=== PATIENT | male | born 1970 | race Caucasian/White ===

== ENCOUNTER 2020-08-05 12:08 | Outpatient (RCR) | payer MEDICAID, SELFPAY ==
--- NOTE | 2020-08-05 13:35 | PCPTNOTE ---
Patient:Alverto Lakhani Date of :1970 Thank you for referring this Alverto to [facility]. The patient has been evaluated for wheelchair seating and recommendations have been made, with assistance of the DME provider, [facility] [place], present. The findings have been scanned into the patient's EMR. Please review, sign, date and return this recognition of care provided. I agree with and certify that the following plan for DME equipment is medically necessary. Efren Buckner PA-C date
== END 2020-08-08 07:58 | disposition home or self-care (01) ==
LOC: ANHPT 12:08
PROVIDERS: PCP Physician Assistant; Visit Provider Physician Assistant
DX: I63.9 Cerebral infarction, unspecified (principal)
CPT/HCPCS: 97163

== ENCOUNTER 2020-12-26 15:12 | Outpatient (RCR) | payer MEDICARE, MEDICAID, SELFPAY ==
--- NOTE | 2020-12-26 16:52 | REHOPWC ---
SEATING EVALUATION NOTIFICATION Re: Alverto Lakhani : 1970 This is to notify provider that Alverto Lakhani participated in a power mobility device evaluation today. Recommendations were made specific to patient's needs. Seating Assessment documentation has been completed for detailed information on required equipment. The mobility device provider for this case is [facility]. Please note that no further care plan will be developed on this account. Thank you for referring this patient to [facility]. Please review, sign, date and return this discharge summary FORTUNATO. I have been updated about the patient's current status and I agree with discharge from the above service at this time. Referring Physician Date
== END 2020-12-27 16:59 | disposition home or self-care (01) ==
LOC: ANHPT 15:12
PROVIDERS: PCP Physician Assistant; Visit Provider Physician Assistant
DX: I63.9 Cerebral infarction, unspecified (principal)
CPT/HCPCS: 97163

== ENCOUNTER 2024-12-25 11:45 | Outpatient (CLI) | payer MEDICARE, MEDICAID, SELFPAY ==
--- NOTE | ~2024-12-25 | XR_ITS ---
EXAM/ PROCEDURE: XR hip RT min 2V - 12/25/2024 12:07 CDT HISTORY: 54 years old Male with Pain in unsp hip COMPARISON: None available TECHNIQUE: Two view(s) FINDINGS/ IMPRESSION: There are no fractures or dislocations.Joint space narrowing, subchondral sclerosis, subchondral cyst formation and osteophyte formation, compatible with severe osteoarthritis. Reviewed, dictated and finalized at location N.
--- NOTE | ~2024-12-25 | XR_ITS ---
XR_CERV2-3V_CR 12/25/2024 12:45 Indication: Radiculopathy Procedure: 5 views of the cervical spine Comparison: No prior studies for comparison. Findings: There are bridging syndesmophytes along the anterior margins of the cervical and upper thoracic spine, consistent with diffuse idiopathic skeletal hyperostosis. There is mild multilevel uncinate and facet hypertrophy. No acute fracture, subluxation or dislocation. Lung apices are normal. Impression: 1: Diffuse idiopathic skeletal hyperostosis (DISH) of the cervical spine. 2: Mild-moderate cervical spondylosis. Reviewed, dictated and finalized at location O. Impression: 1: Diffuse idiopathic skeletal hyperostosis (DISH) of the cervical spine. 2: Mild-moderate cervical spondylosis.
--- NOTE | ~2024-12-25 | XR_ITS ---
EXAM/ PROCEDURE: XR thoracic spine 2V - 12/25/2024 12:07 CDT HISTORY: 54 years old Male with Radiculopathy, thoracic region Radiculopathy, thoracic region COMPARISON: None available TECHNIQUE: Three view(s) FINDINGS/ IMPRESSION: There are no fractures or dislocations.Multilevel degenerative changes are seen. Visualized portion of lungs are clear. Reviewed, dictated and finalized at location N.
--- NOTE | ~2024-12-25 | XR_ITS ---
XR lumbar spine 2-3V 12/25/2024 12:45 Indication: Radiculopathy. Procedure: 3 views lumbar spine Comparison: No prior studies for comparison. Findings: There is diffuse idiopathic skeletal hyperostosis (DISH) of the lumbar spine. There is advanced multilevel facet hypertrophy involving L3-4 through L5- S1. No acute fracture, subluxation or dislocation. There is mild wedge-shaped appearance to T11 and T12, likely chronic. There is atherosclerosis. Mild levocurvature. Impression: 1: No acute abnormality of the lumbar spine. 2: Moderate lumbar spondylosis. 3: There is diffuse idiopathic skeletal hyperostosis (DISH) of the lumbar spine. Reviewed, dictated and finalized at location O. Impression: 1: No acute abnormality of the lumbar spine. 2: Moderate lumbar spondylosis. 3: There is diffuse idiopathic skeletal hyperostosis (DISH) of the lumbar spine .
--- NOTE | ~2024-12-25 | XR_ITS ---
EXAM/ PROCEDURE: XR hip LT min 2V - 12/25/2024 12:07 CDT HISTORY: 54 years old Male with Pain in unsp hip COMPARISON: None available TECHNIQUE: Two view(s) FINDINGS/ IMPRESSION: There are no fractures or dislocations.Joint space narrowing, subchondral sclerosis, subchondral cyst formation and osteophyte formation, compatible with severe osteoarthritis. Reviewed, dictated and finalized at location N.
== END 2024-12-25 11:46 | disposition home or self-care (01) ==
PROVIDERS: PCP Pain Medicine Interventional Pain Medicine; Visit Provider Pain Medicine Interventional Pain Medicine
DX: M47.816 Spondylosis without myelopathy or radiculopathy, lumbar region (principal); M47.814 Spondylosis without myelopathy or radiculopathy, thoracic region; M47.812 Spondylosis without myelopathy or radiculopathy, cervical region; M48.16 Ankylosing hyperostosis [Forestier], lumbar region; M48.12 Ankylosing hyperostosis [Forestier], cervical region; M25.551 Pain in right hip; M25.552 Pain in left hip
CPT/HCPCS: 72040; 72070; 72100; 73502

== ENCOUNTER 2025-01-10 09:59 | Inpatient (IN) | payer MEDICARE, MEDICAID, SELFPAY ==
--- NOTE | ~2025-01-10 | CT_ITS ---
EXAMINATION: CT lumbar spine wo con COMPARISON: None HISTORY: pain TECHNIQUE: Axial images were obtained through the spine without IV contrast. Coronal, sagittal reconstruction images were obtained from the axial views. CT scan performed using dose optimization techniques including the following automated exposure control; adjustment of mA and/or kV; use of iterative reconstruction technique. Automatic exposure control was used to reduce radiation dose. Permanent radiation dose record is archived to PACS. FINDINGS: Moderate loss of vertebral height throughout, no fracture or subluxation. Moderate loss of disc height throughout with anterior osteophyte formation with severe loss of disc height at L5-S1 with facet hypertrophy and multilevel moderate to severe canal and foraminal stenosis, outpatient MRI recommended Soft tissues unremarkable. Impression: No acute abnormality. Reviewed, dictated and finalized at location A. Impression: No acute abnormality.
[2025-01-10 09:58] VITALS: BP 164/97; PULSE 83; RESP 19; TEMP 37; O2SAT 97
[2025-01-10 11:27] LABS: Hematocrit 41.8 % (42.0-52.0); Hemoglobin 14.0 g/dL (14.0-18.0); Immature Granulocyte Percent A 0.3 % (0-0.5); Lymphocytes Absolute Auto 2.76 K/mm3 (0.9-3.2); Mean Corpuscular HGB Conc 33.5 g/dl (32-36); Mean Corpuscular Hemoglobin 31.0 pg (26-34); Mean Corpuscular Volume 92.7 fl (80-100); Nucleated Red Blood Cells Absolute Auto 0.000 K/mm3 (0.0-0.012); Nucleated Red Blood Cells Perc 0.0 % (0.0-0.2); Platelet Count Result 245 k/mm3 (150-375); Red Blood Count 4.51 M/mm3 (4.6-6.20); White Blood Count 8.9 K/mm3 (4.5-10.0)
[2025-01-10 11:29] LABS: Add Urine Microscopic? NO; Appearance Urine Clear (Clear); Glucose Urine UA Negative (Negative); Leukocyte Esterase Ur Negative LEU/UL (Negative); Nitrate Urine Negative (Negative); Specific Grav Ur 1.022 (1.001-1.035)
[2025-01-10 11:41] VITALS: BP 124/77; PULSE 89; RESP 16; O2SAT 97
[2025-01-10 11:41] LABS: Alanine Aminotransferase 51 U/L (6-50); Albumin Level 4.7 g/dL (3.5-5.1); Alkaline Phosphatase 110 U/L (38-126); Anion Gap 10 mmol/L (4-12); Aspartate Amino Transferase 37 U/L (17-59); Bilirubin,Total 0.9 mg/dL (0.2-1.3); Blood Urea Nitrogen 27 mg/dL (9-20); Calcium 9.6 mg/dL (8.4-10.2); Carbon Dioxide 21 mmol/L (22-30); Chloride 111 mmol/L (98-107); Estimated CRCL calculation 98 ml/min; Estimated Glomerular Filt Rate > 60; Glucose 100 mg/dL (65-110); Potassium 4.2 mmol/L (3.4-5.0); Sodium 142 mmol/L (137-145); Total Protein 7.9 g/dL (6.3-8.2)
[2025-01-10] MEDS: diazePAM INJ (*CRX) 10 MG/2 ML SYRINGE 5 MG IV PUSH (11:42)
[2025-01-10] MEDS: KETOROLAC 15 MG/ML VIAL (*BKC) IV PUSH (11:42)
--- NOTE | 2025-01-10 12:17 | PCCCNOTE ---
Spoke with pt in ED room H2. Pt states he can not properly care and clean self. Pt is disabled and on Medicaid and [facility] M[facility]. I spoke with Bbo Lakhani (son) [phone] and he states that pt is currently without permenent housing and he cannot take pt in. I called Monica [phone] at [employer]. They could probably get pt in on Saturday if everything checks out. No information sent yet d/t MD note not available.
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
[2025-01-10 14:04] VITALS: BP 154/99; PULSE 83; RESP 14; O2SAT 98
--- NOTE | 2025-01-10 14:37 | PC.NURSE ---
This RN called report to CANDY Keith. Bed is not clean. RN will let this RN know when bed is clean.
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
[2025-01-10 15:49] VITALS: BMI 31.2
--- NOTE | 2025-01-10 15:50 | ADMGEN ---
This patient, Alverto Lakhani, was admitted to [facility] Surg Room 325-01. Patient/family oriented to hospital policies and general routines including ID bracelet, bed and alarms, visiting hours, pain management, procedures, bathroom and other care routines, personal items, smoking policy, room service/diet, and visiting hours. Information on how to activate the Rapid Response Team has been discussed. Patient/Family are encouraged to report perceived risks to care and to ask questions if they do not understand what they are told or what they should do. Given report by Che Rosas
[2025-01-10 16:00] VITALS: BP 154/90; PULSE 81; RESP 16; TEMP 36.3; O2SAT 98
[2025-01-10] MEDS: HYDROcodone/acetaminophen (*CRX) 5-325 MG TABLET 1 TAB PO (21:13)
[2025-01-10] MEDS: RIVAROXABAN 2.5 MG TABLET PO (21:15)
[2025-01-10 21:31] VITALS: BP 131/75; PULSE 70; RESP 16; TEMP 36.4; O2SAT 97
[2025-01-11 06:11] VITALS: BP 139/73; PULSE 83; RESP 16; TEMP 36.4; O2SAT 100
[2025-01-11] MEDS: RIVAROXABAN 2.5 MG TABLET PO ×2 (09:23→16:48)
[2025-01-11] MEDS: VALSARTAN 160 MG TABLET 320 MG PO (09:23)
[2025-01-11] MEDS: EMPAGLIFLOZIN 10 MG TABLET PO (09:23)
[2025-01-11] MEDS: ATORVASTATIN 40 MG TABLET 80 MG PO (09:23)
[2025-01-11] MEDS: EZETIMIBE 10 MG TABLET PO (09:23)
[2025-01-11] MEDS: HYDROcodone/acetaminophen (*CRX) 5-325 MG TABLET 1 TAB PO (09:23)
[2025-01-11] MEDS: TIZANIDINE HCL 4 MG TABLET PO (09:23)
[2025-01-11 14:00] VITALS: BP 146/93; PULSE 82; RESP 18; TEMP 36; O2SAT 97
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
[2025-01-11 21:46] VITALS: BP 115/60; PULSE 72; RESP 16; TEMP 36.7; O2SAT 96
[2025-01-12 04:07] VITALS: BP 120/77; PULSE 83; RESP 18; TEMP 36.9; O2SAT 99
[2025-01-12] MEDS: EMPAGLIFLOZIN 10 MG TABLET PO (09:41)
[2025-01-12] MEDS: VALSARTAN 160 MG TABLET 320 MG PO (09:41)
[2025-01-12] MEDS: ATORVASTATIN 40 MG TABLET 80 MG PO (09:42)
[2025-01-12] MEDS: RIVAROXABAN 2.5 MG TABLET PO ×2 (09:42→17:18)
[2025-01-12] MEDS: EZETIMIBE 10 MG TABLET PO (09:42)
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
[2025-01-12 13:54] VITALS: BP 118/66; PULSE 81; RESP 20; TEMP 36.6; O2SAT 98
--- NOTE | 2025-01-12 18:32 | PC.NURSE ---
On 01/12/25, the RN, Eryn Beaver, provided care and completed [facility] documentation on this patient. I have reviewed the RN's documentation and agree with the findings.
[2025-01-12 19:54] VITALS: BP 110/60; PULSE 79; RESP 16; TEMP 36.5; O2SAT 98
[2025-01-13 06:00] VITALS: BP 102/58; PULSE 83; RESP 14; TEMP 36.5; O2SAT 99
[2025-01-13] MEDS: HYDROcodone/acetaminophen (*CRX) 5-325 MG TABLET 1 TAB PO ×2 (08:23→21:17)
[2025-01-13] MEDS: ATORVASTATIN 40 MG TABLET 80 MG PO (08:24)
[2025-01-13] MEDS: VALSARTAN 160 MG TABLET 320 MG PO (08:24)
[2025-01-13] MEDS: RIVAROXABAN 2.5 MG TABLET PO ×2 (08:24→17:05)
[2025-01-13] MEDS: EZETIMIBE 10 MG TABLET PO (08:24)
[2025-01-13] MEDS: EMPAGLIFLOZIN 10 MG TABLET PO (08:25)
--- NOTE | 2025-01-13 09:47 | P.PNIM_ITS ---
Progress Note: A&P Assessment and Plan (1) Strain of lumbar region: Qualifiers: Encounter type: initial encounter Qualified Code(s): S39.012A - Strain of muscle, fascia and tendon of lower back, initial encounter Code(s): S39.012A - Strain of muscle, fascia and tendon of lower back, initial encounter Status: Acute Assessment and Plan: Patient has chronic debility secondary to CVA and chronic low back pain. He has been unable to wipe himself in the past 3 years and typically uses a bidet or shower head. Patient attempted to wipe himself today and strained his lower back. He has been unable to ambulate without extreme difficulty or straighten since. Patient and family concerned he is unable to care for himself independently. Requesting placement, unable to be placed from the ED. - L-spine CT: No acute abnormality - care coordination consulted for placement, authorization pending - analgesics p.r.n. -> Tylenol and [place] - continue home tizanidine - PT/OT evaluation and treatment recommending SNF Pain remains well controlled on the current regimen. Per patient all weakness, tremor, decreased sensation is chronic from prior CVA. No new tingling, numbness, weakness or pain. (2) Unable to care for self: Code(s): Z78.9 - Other specified health status Status: Acute Assessment and Plan: - see above (3) Diabetes: Qualifiers: Diabetes mellitus complication status: without complication Diabetes mellitus intermodal customer service insulin use: without fci use Diabetes mellitus type: type 2 Qualified Code(s): E11.9 - Type 2 diabetes mellitus without complications Code(s): E11.9 - Type 2 diabetes mellitus without complications Status: Chronic Assessment and Plan: - hypoglycemia protocol - POC blood glucose ACHS - home medication: Jardiance, hold Trulicity (NF) - correct regimen ordered - high dose TIDWM (4) Hyperlipidemia: Qualifiers: Hyperlipidemia type: unspecified Qualified Code(s): E78.5 - Hyperlipidemia, unspecified Code(s): E78.5 - Hyperlipidemia, unspecified Status: Chronic Assessment and Plan: - continue atorvastatin 40 mg daily and ezetimibe (5) Hypertension: Qualifiers: Hypertension type: primary hypertension Qualified Code(s): I10 - Essential (primary) hypertension Code(s): I10 - Essential (primary) hypertension Status: Chronic Assessment and Plan: - chronic, continue home medications: valsartan 320 mg daily - monitor Time Spent With Patient Time with patient: 25 - 35 minutes Subjective Date/time seen: 01/13/25 09:47 Interval history: 54 y/o M with PMH of diabetes, hypertension, hyperlipidemia, and CVA with residual left sided weakness/numbness presents here with back pain. Patient is pleasant sitting up comfortably in bed. He states that his pain is well controlled on the current regimen and has no complaints at this time denying chest pain, shortness a breath, palpitations, nausea/vomiting, abdominal pain. Review of Systems Review of Systems: All systems reviewed & are unremarkable except as noted in HPI and below Exam Narrative: AF HR 83 RR 14 Spo2 99 BP 102/58 General: male in no acute respiratory distress who is nontoxic appearing, sitting up in bed. HEENT: Normocephalic. Atraumatic. Extraocular movement intact. Sclera clear and anicteric. No facial asymmetry. Chest: Lungs are clear to auscultation bilaterally. No wheezes or crackles. CV: Heart was regular rate and rhythm. Abd: Abdomen was soft. Nontender. Nondistended. Positive bowel sounds. Ext: No clubbing, cyanosis, or edema. DP pulses bilaterally. Neuro: Patient is alert and oriented x4. Weak dietetic tech strength and push/pulls to the left upper extremity. Weak dorsal and plantar flexion of left lower extremity. Decreased sensation to BLE. LUE tremor to hand. Per patient all weakness, tremor, decreased sensation chronic from prior CVA. Speech is clear. Objective Data Vital Signs Vital Signs: Vital Signs - 24 hr 01/12/25 13:54 01/12/25 19:54 01/12/25 20:00 Temperature 97.9 F 97.7 F Pulse Rate 81 79 Respiratory Rate 20 16 Blood Pressure 118/66 110/60 Pulse Oximetry 98 98 Oxygen Delivery Room Air 01/13/25 06:00 Temperature 97.7 F Pulse Rate 83 Respiratory Rate 14 Blood Pressure 102/58 L Pulse Oximetry 99 Oxygen Delivery Intake/Output Intake/Output: Intake & Output 01/10/25 01/11/25 01/12/25 01/13/25 23:59 23:59 23:59 23:59 Intake Total 240 1020 1598 Balance 240 1020 1598 Meds/Results Medications: Active Medications Generic Name Dose Route Start Last Admin Trade Name Freq PRN Reason Stop Dose Admin Acetaminophen 650 mg 01/10/25 13:33 Acetaminophen 325 Mg Tablet PO Q4H PRN Mild Pain (1-3) or Fever Hydrocodone Bitart/Acetaminophen 1 tab 01/10/25 13:33 01/13/25 08:23 Hydrocodone/Acetaminophen (*Crx) 5-325 Mg Tablet PO 1 tab Q4H PRN Administration Pain Rated 4-6 Atorvastatin Calcium 80 mg 01/11/25 09:00 01/13/25 08:24 Atorvastatin 40 Mg Tablet PO 80 mg DAILY MARY Administration Dextrose 12.5 gm 01/10/25 15:13 Dextrose 50% 25 Gm/50 Ml Syringe IV PUSH PRN PRN Hypoglycemia Protocol Ezetimibe 10 mg 01/11/25 09:00 01/13/25 08:24 Ezetimibe 10 Mg Tablet PO 10 mg DAILY MARY Administration Empagliflozin 10 mg 01/11/25 09:00 01/13/25 08:25 Empagliflozin 10 Mg Tablet PO 10 mg DAILY MARY Administration Glucagon 1 mg 01/10/25 15:13 Glucagon For Inj 1 Mg Vial IM PRN PRN Hypoglycemia Protocol Glucose 15 gm 01/10/25 15:13 Glucose Oral Gel 15 Gm Of Glucse In 37.5 Gm Tube PO PRN PRN Hypoglycemia Protocol Dextrose 1,000 mls @ 100 mls/hr 01/10/25 15:13 Dextrose 5% 1,000 Ml IVPB PRN PRN Hypoglycemia Protocol Insulin Aspart 4 - 8 units 01/10/25 17:00 01/13/25 07:48 Insulin Aspart (*Bkc) 100 Units/Ml SUB-Q Not Given TIDWM [facility] Protocol Ondansetron HCl 4 mg 01/10/25 13:33 Ondansetron Inj 4 Mg/2 Ml Vial IV PUSH Q4H PRN Nausea Rivaroxaban 2.5 mg 01/10/25 20:10 01/13/25 08:24 Rivaroxaban 2.5 Mg Tablet PO 2.5 mg BID MARY Administration Tizanidine HCl 4 mg 01/10/25 20:05 01/11/25 09:23 Tizanidine Hcl 4 Mg Tablet PO 4 mg Q8-12H PRN Administration Muscle Spasticity Valsartan 320 mg 01/11/25 09:00 01/13/25 08:24 Valsartan 160 Mg Tablet PO 320 mg DAILY MARY Administration Radiology Results: ITS Impressions Lumbar Spine CT 01/10/25 11:04 Impression: No acute abnormality. Labs Labs: Laboratory Results - last 24 hr 01/12/25 01/12/25 01/12/25 11:20 16:27 20:03 POC Capillary Glucose 88 86 127 H 01/13/25 07:29 POC Capillary Glucose 106 H Quality VTE Prophylaxis VTE prophylaxis: pharmacologic ordered
[2025-01-13 14:00] VITALS: BP 113/70; PULSE 79; RESP 20; TEMP 36.4; O2SAT 98
[2025-01-13 20:15] VITALS: BP 109/54; PULSE 73; RESP 16; TEMP 36; O2SAT 98
[2025-01-14 04:20] VITALS: BP 98/52; PULSE 76; RESP 16; TEMP 36.3; O2SAT 99
[2025-01-14] MEDS: VALSARTAN 160 MG TABLET 320 MG PO (08:36)
[2025-01-14] MEDS: ATORVASTATIN 40 MG TABLET 80 MG PO (08:37)
[2025-01-14] MEDS: EZETIMIBE 10 MG TABLET PO (08:37)
[2025-01-14] MEDS: EMPAGLIFLOZIN 10 MG TABLET PO (08:37)
[2025-01-14] MEDS: RIVAROXABAN 2.5 MG TABLET PO ×2 (08:37→16:57)
[2025-01-14] MEDS: HYDROcodone/acetaminophen (*CRX) 5-325 MG TABLET 1 TAB PO (09:12)
[2025-01-14 14:00] VITALS: BP 104/50; PULSE 93; RESP 16; TEMP 36.6; O2SAT 98
--- NOTE | 2025-01-14 16:30 | P.DS_ITS ---
DS: Admitting Diagnosis Discharge Date 01/14/2025 Admitting Diagnosis strain of lumbar region unable to care for self dm hld htn DS: Discharge Diagnosis Discharge Diagnosis (1) Strain of lumbar region: Qualifiers: Encounter type: initial encounter Qualified Code(s): S39.012A - Strain of muscle, fascia and tendon of lower back, initial encounter Code(s): S39.012A - Strain of muscle, fascia and tendon of lower back, initial encounter Status: Acute (2) Unable to care for self: Code(s): Z78.9 - Other specified health status Status: Acute (3) Diabetes: Qualifiers: Diabetes mellitus type: type 2 Diabetes mellitus ferry terminal agent insulin use: without alf use Diabetes mellitus complication status: without complication Qualified Code(s): E11.9 - Type 2 diabetes mellitus without complications Code(s): E11.9 - Type 2 diabetes mellitus without complications Status: Chronic (4) Hyperlipidemia: Qualifiers: Hyperlipidemia type: unspecified Qualified Code(s): E78.5 - Hyperlipidemia, unspecified Code(s): E78.5 - Hyperlipidemia, unspecified Status: Chronic (5) Hypertension: Qualifiers: Hypertension type: primary hypertension Qualified Code(s): I10 - Essential (primary) hypertension Code(s): I10 - Essential (primary) hypertension Status: Chronic DS: Summary Hospital Course Reason for hospitalization: strain of lumbar region unable to care for self dm hld htn Hospital Course: 54 y/o M with PMH of diabetes, hypertension, hyperlipidemia, and CVA with residual left sided weakness/numbness presents here with back pain. Patient has chronic debility secondary to CVA and chronic low back pain. He has been unable to wipe himself in the past and typically uses a bidet or shower head. Patient attempted to wipe himself and strained his lower back. He has been unable to ambulate without extreme difficulty or straighten since. Patient and family concerned he is unable to care for himself independently. Requesting placement. L spine CT showed no acute abnormality. Patient worked with PT/OT who recommend placement for further therapy. Had a peer to peer with patient's insurance company as patient was denied SNF authorization. After discussing this with care coordination the facility was contacted and stated they were able to take patient as a [facility] assisted [facility]. Patient had no complaints at time of discharge denying chest pain, shortness a breath, palpitations, nausea/vomiting, and abdominal pain. Patient stated that his pain was well controlled on the current regimen. He denied any tingling/numbness/weakness as well as dizziness/lightheadedness with ambulation. Patient discharged to [facility] assisted [facility] in a stable condition. He has a follow-up with his primary care provider in 1 week. Status at Discharge Functional status at discharge: uses cane/walker Time Spent with Patient Time attestation: Total time spent providing and/or coordinating discharge services: Time spent: Greater than 30 minutes Exam Narrative: AF HR 76 RR 16 Spo2 99 BP 98/52 General: male in no acute respiratory distress who is nontoxic appearing, sitting up in bed. HEENT: Normocephalic. Atraumatic. Extraocular movement intact. Sclera clear and anicteric. No facial asymmetry. Chest: Lungs are clear to auscultation bilaterally. No wheezes or crackles. CV: Heart was regular rate and rhythm. Abd: Abdomen was soft. Nontender. Nondistended. Positive bowel sounds. Ext: No clubbing, cyanosis, or edema. DP pulses bilaterally. Neuro: Patient is alert. Weak per diem strength and push/pulls to the left upper e xtremity. Weak dorsal and plantar flexion of left lower extremity. Decreased sensation to BLE. LUE tremor to hand. Per patient all weakness, tremor, decreased sensation chronic from prior CVA. Speech is clear. DS: Data Data Completed and Pending Completed studies during hospitalization: lumbar spine ct Labs on day of discharge: Labs from last 24 hours 01/14/25 01/14/25 01/13/25 11:48 07:51 20:16 POC Capillary Glucose 96 107 H 129 H 01/13/25 16:49 POC Capillary Glucose 107 H Discharge Plan Discharge Attending physician on discharge: Munira Sosa Consulting providers: Haydee Cerrato Discharging Clinician: Haydee Cerrato Anticipated Discharge Date/Time: 01/14/25 14:56 Patient Disposition: [place] Group Home/Asst Living Activity: as tolerated Diet: as tolerated, heart healthy and diabetic Discharge Instructions: Discharge disposition: Patient admitted to the hospital for a strain to his lower back Imaging unremarkable Continue home medications as prescribed Tizanidine and [place], attached is information on these medications Patient to continue working with Physical/Occupational therapy on arrival to assisted living Strict bleeding precautions since you are on Xarelto including shaving with an electric razor, holding pressure for greater than 20 minutes for injury, protection of had with any falls, etc. Monitor blood pressures Take caution while standing, rising, or moving Change positions slowly taking a break between each position change If you standing feel dizzy sit back down and take a break Encouraged to continue with yearly vaccinations Return to the emergency department if he developed sudden shortness of breath, chest pain, nausea, vomiting, upset stomach or intractable diarrhea Return to the emergency department if you develop fever greater than 100.5 Follow-up with the primary care physician within 1-2 weeks Thank you for [facility] for your healthcare needs Patient Instructions: Hydrocodone/Acetaminophen (By mouth), Tizanidine (By mouth), Rivaroxaban (By mouth), Cigarette Smoking and Your Health (GEN), Low Back Strain (DC), Chronic Back Pain (DC) Patient Language: Cypriot Stand Alone Forms: General Discharge Information Follow-up/Referrals: Murali,Zac Pérez MD [Primary Care Provider, Physical Medicine & Rehab] - 1 Week Discharge Medications: Continued tizanidine 4 mg tablet 4 mg PO BID-TID PRN (Reason: muscle spasticity) rivaroxaban [Xarelto] 2.5 mg tablet 2.5 mg PO BID atorvastatin 80 mg tablet 80 mg PO DAILY valsartan 320 mg tablet 320 mg PO DAILY ezetimibe 10 mg tablet 10 mg PO DAILY Jardiance 10 mg tablet 10 mg PO DAILY Trulicity 1.5 mg/0.5 mL pen injector 1.5 mg SUBCUT WEEKLY hydrocodone-acetaminophen 5-325 mg tablet 1 tablet PO BID PRN (Reason: pain) Qty: 8 0RF Date of admission: 01/12/25 15:06 Primary Care Provider: Valerio,Zac Pérez Admitting Provider: Jeff Wallis Attending physician on admission: Jeff Wallis Condition: Stable Hospitalist MIPS Heart Failure (Exclusion) Patient has history of Heart Transplant or Left Ventricular Assistive Device?: No IF YES, STOP HERE Heart Failure (Qualifier) Patient has current or prior documentation of LVEF less than or equal to 40%, or mod/servere depressed LVSF?: No IF NO, STOP HERE
== END 2025-01-14 17:52 | DRG 563 ==
LOC: ANHED 13:30 → ANH3MEDSUR 14:19
PROVIDERS: Family Medicine; Admitting Provider General Practice; Emergency Provider Emergency Medicine; PCP Pain Medicine Interventional Pain Medicine; Visit Provider Student in an Organized Health Care Education/Training Program
DX: S39.012A Strain of muscle, fascia and tendon of lower back, initial encounter (principal); I69.854 Hemiplegia and hemiparesis following other cerebrovascular disease affecting left non-dominant side; Z59.01 Sheltered homelessness; X50.1XXA Overexertion from prolonged static or awkward postures, initial encounter; G83.11 Monoplegia of lower limb affecting right dominant side; M54.89 Other dorsalgia; E11.40 Type 2 diabetes mellitus with diabetic neuropathy, unspecified; E78.5 Hyperlipidemia, unspecified; I10 Essential (primary) hypertension; F17.210 Nicotine dependence, cigarettes, uncomplicated; F10.21 Alcohol dependence, in remission; Z74.1 Need for assistance with personal care; Z79.891 Long term (current) use of opiate analgesic; Z79.01 Long term (current) use of anticoagulants; Z79.85 Long-term (current) use of injectable non-insulin antidiabetic drugs
CPT/HCPCS: 36415; 72131; 80053; 81003; 82948; 85025; 96374; 96375; 97116; 97161; 97166; 97530; 97535; 99285; A9270; G0378; J1885; J3360